=== PATIENT | male | born 1950 | race Caucasian/White ===

== ENCOUNTER → 2017-09-15 | Day surgery (SDC) | payer OTHER ==
[~2017-09-15] MED LIST: ALLEGRA180 MG PO; ASPIRIN325 MG PO; BUPIVACAINE HCL 0.5% INJ 30 ML VIAL INJ ONE; CENTRUM SILVER1 EAC2; CITRACAL + D C1 EACH PO; CLINDAMYCIN PHOS 900MG/ D5W 50 50 ML IV ONE; DEXAMETHASONE SOD PHOS INJ 4 MG/ML VIAL ONE; FENTANYL CITRATE/PF 100MCG/2 ML INJ ONE; FISH OIL OMEGA1 EACH PO; FLONASE; FOLIC ACID1 MG PO; KETOROLAC TROMETHAMINE 30 MG/ML VIAL ONE; LIDOCAINE HCL 2% LOCAL INJ 5 ML SDV VIAL INJ ONE; LOSARTAN POTAS100 MG PO; MICARDIS40 MG PO; MIDAZOLAM HCL 2 MG/2 ML VIAL ONE; ONDANSETRON HCL INJ 2 MG/ML VIAL ONE; PROPOFOL IV EMULSION 10 MG/ML 20 ML VIAL ONE; SEVOFLURANE INHAL SOLN 250 ML PEN BTL ONE
--- NOTE | 2017-09-16 02:42 | Operative Report ---
DATE OF PROCEDURE: September 15, 2017 PREOPERATIVE DIAGNOSIS: Bilateral long and ring finger trigger fingers. POSTOPERATIVE DIAGNOSIS: Bilateral long and ring finger trigger fingers. OPERATIONS//PROCEDURES PERFORMED 1. Release of the right long finger A1 tawanna. 2. Release of the right A1 tawanna for the ring finger. 3. Release of the right ring finger A2 tawanna. 4. Release of the left long finger A1 tawanna. 5. Release of the left A1 tawanna for the ring finger. 6. Release of the left A2 tawanna for the ring finger. COUNTY EXTENSION AGENT: None. ANESTHESIA: General intubation anesthesia. IV FLUIDS: Per anesthesia record. BRIEF DESCRIPTION OF PROCEDURE: Mr. Boswell was taken to the operating room, placed in the supine position on operating table. Following induction of general anesthesia, as well as endotracheal intubation, the patient's bilateral hands were evaluated under anesthesia. He was found to have normal-appearing hands. Motion to fingers demonstrated catching and locking for the long finger and ring fingers of each hand. The patient's upper extremity was prepped and draped in standard surgical fashion. The case was begun by addressing the pathology in the right hand. The patient's long finger was evaluated and he was found to have a palpable nodule at the level of the A1 tawanna for the long finger. Passive flexion of the finger resulted in catching of the finger at the level of the A1 tawanna. An incision was created over the A1 tawanna. This incision was carried through skin only. Blunt dissection was used deepen the incision to the level of the A1 tawanna and the A1 tawanna was isolated using Blanca retractors. The A1 tawanna was then divided in line with the skin incision. Evaluation of flexor tendon demonstrated fusiform swelling within the tendon, but no other pathology. The finger was placed through passive range of motion and there was no more catching or locking within the finger. Attention was then turned to the ring finger. The ring finger with placed through range of motion and again, significant locking was identified at the level of the A1 tawanna. An incision was created over the A1 tawanna and ring finger and blunt dissection was used to deepen the incision to the level of the A1 tawanna. A1 tawanna was isolated using Blanca retractors. The A1 tawanna was then opened throughout its entirety. Examination of the flexor tendon demonstrated a single nodule within the flexor tendon, but no other pathology. The finger was placed through range of motion and there was continued catching within the finger. Palpation of the finger during passive motion of the finger identified a 2nd nodule at the level of the A2 tawanna. An incision was created at the base of the proximal phalanx volar crease and the hand and this incision was carried through skin only. Blunt dissection was used to deepen the incision to the level of the flexor tawanna and the tawanna was isolated using Blanca retractors. The tawanna was then opened in its entirety. The finger was placed through motion and the patient was found to have no further catching or locking. All wounds were copiously irrigated. The wounds were then closed in a single-layer fashion using nylon suture. The patient was then turned to the patient's left hand. Again, the left hand was evaluated under anesthesia. There was catching and locking with both passive motion of the long and ring fingers. Attention was 1st turned to the patient's long finger. An incision was carried through the skin overlying the long finger A1 tawanna. This incision was deepened in a blunt fashion. Seen retractor was used to isolate the flexor tendon and A1 tawanna. The A1 tawanna was then divided in line with the skin incision. The underlying flexor tendon was evaluated and found to have a single nodule in the tendon. It was, otherwise, healthy and there was no pathology. The finger was placed through passive range of motion and there was no further catching or locking in the finger. Attention was then turned to the left ring finger. Again, a palpable nodule was felt at the level of the A1 tawanna. Catching and locking was demonstrated with passive motion of the finger in this area. The incision was created over the A1 tawanna. Incision was carried through skin only. Blunt dissection was used to deepen the incision to the level of the flexor tendon A1 tawanna. The tawnana was isolated using Blanca retractors. The tawanna was then opened in its entirety. The flexor tendon was evaluated and found to have a single nodule. There was no other pathology in the tendon. The finger was placed in range of motion and again, there was some continued catching at the level of the A2 tawanna. An incision was created over the A2 tawanna and blunt dissection was used to isolate the flexor tendon tawanna. Blanca retractors isolated the tawanna and tawanna was opened in its entirety. Passive flexion of the ring finger at this time demonstrated no further catching or locking. The wounds were copiously irrigated and closed in a multilayer fashion. Sterile dressings were applied to both hands and the patient was then awakened and taken to the post anesthesia care unit in stable condition. Job#: [id number] CQ
== END | disposition home or self-care (01) ==
LOC: OR 08:30
PROVIDERS: ATTEND Specialist
DX: M65.332 Trigger finger, left middle finger (principal); M65.342 Trigger finger, left ring finger; M65.341 Trigger finger, right ring finger; M65.331 Trigger finger, right middle finger; M19.042 Primary osteoarthritis, left hand; M19.041 Primary osteoarthritis, right hand; I10 Essential (primary) hypertension; Z88.0 Allergy status to penicillin; Z88.7 Allergy status to serum and vaccine; Z79.82 Long term (current) use of aspirin; Z86.73 Personal history of transient ischemic attack (TIA), and cerebral infarction without residual deficits; Z87.891 Personal history of nicotine dependence
CPT/HCPCS: 26055 ×4; J1100; J1885; J2001; J2250; J2405

== ENCOUNTER → 2019-07-28 | Day surgery (SDC) | payer OTHER ==
[2019-07-24 15:20] LABS: BASOPHILS # (AUTO) 0.1 (0.0-0.1); BASOPHILS % 0.7 % (0.0-1.0); EOSINOPHILS # (AUTO) 0.1 (0.0-0.4); EOSINOPHILS % 1.2 % (0.0-6.0); HEMATOCRIT 44.3 % (38.2-49.6); LYMPHOCYTES # (AUTO) 1.7 (1.0-3.2); LYMPHOCYTES % 25.3 % (18.0-39.1); MEAN CORPUSCULAR HEMOGLOBIN 31.6 pg (28-32); MEAN CORPUSCULAR HGB CONC 33.9 g/dL (31-35); MEAN CORPUSCULAR VOLUME 93.3 fL (81-99); MONOCYTES # (AUTO) 0.6 (0.2-0.8); NEUTROPHILS # (AUTO) 4.3 (2.1-6.9); NEUTROPHILS % 63.7 % (38.7-80.0); PLATELET COUNT 181 x10e3/uL (140-360); RED BLOOD COUNT 4.75 x10e6/uL (4.3-5.7)
[2019-07-24 15:38] LABS: ALANINE AMINOTRANSFERASE 26 IU/L (0-55); ALBUMIN 3.9 g/dL (3.5-5.0); ALBUMIN/GLOBULIN RATIO 1.3 (0.8-2.0); ALKALINE PHOSPHATASE 100 IU/L (40-150); ANION GAP 13.9 mmol/L (8-16); BLOOD UREA NITROGEN 18 mg/dL (7-26); BUN/CREATININE RATIO 18 (6-25); CALCIUM 9.4 mg/dL (8.4-10.2); CARBON DIOXIDE 27 mmol/L (22-29); CHLORIDE 103 mmol/L (98-107); CREATININE, SERUM 0.99 mg/dL (0.72-1.25); EST GLOMERULAR FILTRATION RATE > 60 ML/MIN (60-); GLUCOSE 90 mg/dL (74-118); POTASSIUM 3.9 mmol/L (3.5-5.1); SODIUM 140 mmol/L (136-145)
--- NOTE | 2019-07-24 16:14 | Diagnostic Imaging Report ---
EXAMINATION: CHEST 2 VIEWS INDICATION: Pre-operative COMPARISON: None FINDINGS: LINES/TUBES:None LUNGS:The lungs are well-inflated. No focal consolidation or pulmonary edema. Mild right greater than left biapical pleural parenchymal thickening/scarring. PLEURA:No pleural effusion or pneumothorax. MEDIASTINUM:The cardiomediastinal silhouette appears normal in size and shape. Atherosclerotic calcifications of the thoracic aorta. BONES/SOFT TISSUES:No acute osseous injury. ABDOMEN:No free air under the diaphragm. IMPRESSION: No focal pneumonia or pulmonary edema. Signed by: Vrigil Phillips MD on 07/24/2019 4:12 PM
[~2019-07-28] MED LIST changes: +ALLEGRA-D 24 H1 EACH PO; -CLINDAMYCIN PHOS 900MG/ D5W 50 50 ML IV ONE; -KETOROLAC TROMETHAMINE 30 MG/ML VIAL ONE; +LABETALOL HCL 0 ML ONE; +LEVOFLOXACIN 500MG/D5W 100ML 100 ML IV ONE; -MIDAZOLAM HCL 2 MG/2 ML VIAL ONE; -ONDANSETRON HCL INJ 2 MG/ML VIAL ONE; +ONDANSETRON HCL INJ 2MG/ML 2ML 2 MG/ML VIAL ONE; +VIT C PO
--- OUTSIDE RECORDS SUMMARY | 2019-07-28 10:23 | XMS REPORT ---
Author Author [facility] Address Unknown Phone Unavailable Care Team Providers Care Form Tamper Operator Name Role Phone KAILEY ANGELO Unavailable Unavailable Problems This patient has no known problems. Allergies, Adverse Reactions, Alerts This patient has no known allergies or adverse reactions. Medications This patient has no known medications. Results Test Description Test Time Test Comments Text Results Atomic Results Result Comments CHEST 2 VIEWS 2019-07-24 16:11:00 [place] [id number] Patient Name: TYESHA STORM MR #: [id number] : 1950 Age/Sex: 68/M Req #: [id number] Adm Physician: Ordered by: KAILEY ANGELO MD Report #: [id number] Location: OR Room/Bed: Procedure: [id number] DX/CHEST 2 VIEWS Exam Date: 07/24/19 Exam Time: 1541 REPORT STATUS: Signed EXAMINATION: CHEST 2 VIEWS INDICATION: Pre-operative COMPARISON: None FINDINGS: LINES/TUBES:None LUNGS:The lungs are well-inflated. No focal consolidation or pulmonary edema. Mild right greater than left biapical pleural parenchymal thickening/scarring. PLEURA:No pleural effusion or pneumothorax. MEDIASTINUM:The cardiomediastinal silhouette appears normal in size and shape. Atherosclerotic calcifications of the thoracic aorta. BONES/SOFT TISSUES:No acute osseous injury. ABDOMEN:No free air under the diaphragm. IMPRESSION: No focal pneumonia or pulmonary edema. Signed by: Bharat Devries MD on 07/24/2019 4:12 PM Dictated By: BHARAT DEVRIES MD 161 Transcribed By: CHRIS on 07/24/191611 COPY TO: KAILEY ANGELO MD
[2019-07-28 14:25] VITALS: BP 160/93
--- NOTE | 2019-07-28 20:33 | Operative Report ---
DATE OF PROCEDURE: 07/28/2019 SURGEON: Dalton Millan MD PREOPERATIVE DIAGNOSIS: Right axillary mass. POSTOPERATIVE DIAGNOSIS: Right axillary mass. PROCEDURE: Excision of deep right axillary mass 7 cm. COMMERCIAL LOAN REVIEWER: None. ANESTHESIA: General. INDICATIONS AND FINDINGS: The patient is a 68-year-old male, who presented with large mass in the right axilla. At surgery, there was about 7 cm mass that was excised and appeared to be enlarged lymph node. There were several lymph nodes matted together, which were removed. TECHNIQUE: After adequate general anesthesia with the patient in supine position, the right axilla was prepped and draped in a sterile fashion with ChloraPrep solution. Transverse incision was made, carried down through subcutaneous tissue until the clavipectoral fascia was encountered. This was incised in deep axilla. The mass was identified and completely excised from the surrounding tissues, appeared to be enlarged lymph node. There were several other small lymph nodes matted to it, these were all excised completely. Hemostasis was achieved with electrocautery. A portion of the mass was submitted for cultures draining for pathology. The wound was irrigated with saline and inspected for hemostasis, which was seen to be adequate. So, irrigated further with saline. All fluid aspirated and inspected for hemostasis, which was seen to be adequate. The wound was then infiltrated with 0.5% Marcaine. The wound was then closed with 3-0 Vicryl subcutaneous tissue and 4-0 Vicryl subcuticular to the skin and Dermabond was applied to the wound and a sterile dressing. The patient tolerated the procedure well. The patient was taken to the recovery room in satisfactory condition. ESTIMATED BLOOD LOSS: 60 mL. COMPLICATIONS: There were no complications. COUNTS: All counts were correct. Dalton Millan MD DWG/MODL /[id number] cc: Mars Wisdom MD
== END | disposition home or self-care (01) ==
LOC: OR 10:17
PROVIDERS: ATTEND Surgery
DX: C96.9 Malignant neoplasm of lymphoid, hematopoietic and related tissue, unspecified (principal); I10 Essential (primary) hypertension; I69.998 Other sequelae following unspecified cerebrovascular disease; H53.9 Unspecified visual disturbance; Z01.810 Encounter for preprocedural cardiovascular examination; Z01.812 Encounter for preprocedural laboratory examination; Z01.818 Encounter for other preprocedural examination; Z79.82 Long term (current) use of aspirin
CPT/HCPCS: 36415; 38525; 71046; 80053; 85025; 87071; 87075; 87116; 87205; 87206; 88172; 88173; 88305; 88331; 88342; 93005; J1100; J1956; J2001; J2405; J2704; J3010

== ENCOUNTER → 2023-06-18 | Day surgery (SDC) | payer MEDICARE, OTHER ==
[2023-06-16 14:33] LABS: BASOPHILS # (AUTO) 0.1 (0.0-0.1); BASOPHILS % 0.5 % (0.0-1.0); EOSINOPHILS # (AUTO) 0.1 (0.0-0.4); EOSINOPHILS % 0.6 % (0.0-6.0); HEMATOCRIT 38.2 % (38.2-49.6); HEMOGLOBIN 12.7 g/dL (14.0-18.0); LYMPHOCYTES # (AUTO) 1.3 (1.0-3.2); LYMPHOCYTES % 10.2 % (18.0-39.1); MEAN CORPUSCULAR HEMOGLOBIN 30.8 pg (28-32); MEAN CORPUSCULAR HGB CONC 33.2 g/dL (31-35); MEAN CORPUSCULAR VOLUME 92.7 fL (81-99); MONOCYTES # (AUTO) 0.8 (0.2-0.8); MONOCYTES % 6.3 % (4.4-11.3); NEUTROPHILS # (AUTO) 10.5 (2.1-6.9); PLATELET COUNT 256 x10e3/uL (140-360); RED BLOOD COUNT 4.12 x10e6/uL (4.3-5.7); RED CELL DISTRIBUTION WIDTH 12.9 % (11.7-14.4); WHITE BLOOD COUNT 12.84 x10e3/uL (4.8-10.8)
[2023-06-16 15:00] LABS: ANION GAP 13.2 mmol/L (8-16); CREATININE, SERUM 1.24 mg/dL (0.72-1.25); POTASSIUM 4.2 mmol/L (3.5-5.1)
[~2023-06-18] MED LIST changes: +ACETAMINOPHEN 1000 MG/100 ML 100 ML IV ONE; +BUPIVACAINE 0.25% 30ML SDV ONE; -BUPIVACAINE HCL 0.5% INJ 30 ML VIAL INJ ONE; +CLARITIN10 M2; +DEXAMETHASONE SOD PHOS INJ 4 MG/ML SDV ONE; -DEXAMETHASONE SOD PHOS INJ 4 MG/ML VIAL ONE; +EPHEDRINE SULFATE INJ 50 MG/ML VIAL ONE; +FLUTICASONE P10.6 GM; +HAIR, SKIN AND1 EAC2 PO; -LABETALOL HCL 0 ML ONE; +LACTATED RINGER'S 1,000 ML ONE; -LEVOFLOXACIN 500MG/D5W 100ML 100 ML IV ONE; +LIDOCAINE 2% /EPINEPHRINE 20 ML SDV INJ ONE; +MAGNESIUM PO; +SUGAMMADEX SODIUM 200 MG/2 ML VIAL IV ONE; +TYLENOL ARTHRITIS; +VITAMIN B-125000 MC2 PO; +VITAMIN C500 MG PO; +VITAMIN E450 M1; +[UNRECOGNIZED DRUG - OTHER]
[2023-06-18] MEDS: FENTANYL CITRATE/PF 100MCG/2 ML INJ ONE ×4 (10:56→11:15)
[2023-06-18 12:10] VITALS: BP 150/80; PULSE 80; RESP 16; O2SAT 97
== END | disposition home or self-care (01) ==
LOC: OR 06:13
PROVIDERS: ATTEND Surgery
DX: K40.90 Unilateral inguinal hernia, without obstruction or gangrene, not specified as recurrent (principal); D17.6 Benign lipomatous neoplasm of spermatic cord; I10 Essential (primary) hypertension; I69.398 Other sequelae of cerebral infarction; H54.62 Unqualified visual loss, left eye, normal vision right eye; F17.200 Nicotine dependence, unspecified, uncomplicated; Z88.0 Allergy status to penicillin; Z88.7 Allergy status to serum and vaccine; Z01.812 Encounter for preprocedural laboratory examination; Z01.818 Encounter for other preprocedural examination; Z79.82 Long term (current) use of aspirin; Z79.899 Other long term (current) drug therapy; Z87.01 Personal history of pneumonia (recurrent)
CPT/HCPCS: 36415; 49505; 71046; 80048; 85025; 88304; C1781; J0131; J1100; J2001 ×2; J2405; J2704; J3010; J7121; 88302

== ENCOUNTER → 2024-02-04 | Outpatient (REF) | payer MEDICARE ==
[~2024-02-04] MED LIST changes: -ACETAMINOPHEN 1000 MG/100 ML 100 ML IV ONE; -BUPIVACAINE 0.25% 30ML SDV ONE; -DEXAMETHASONE SOD PHOS INJ 4 MG/ML SDV ONE; -EPHEDRINE SULFATE INJ 50 MG/ML VIAL ONE; -FENTANYL CITRATE/PF 100MCG/2 ML INJ ONE; +GADOBENATE DIMEGLUMINE 1 ML IV ONE; -LACTATED RINGER'S 1,000 ML ONE; -LIDOCAINE 2% /EPINEPHRINE 20 ML SDV INJ ONE; -LIDOCAINE HCL 2% LOCAL INJ 5 ML SDV VIAL INJ ONE; -ONDANSETRON HCL INJ 2MG/ML 2ML 2 MG/ML VIAL ONE; -PROPOFOL IV EMULSION 10 MG/ML 20 ML VIAL ONE; -SEVOFLURANE INHAL SOLN 250 ML PEN BTL ONE; -SUGAMMADEX SODIUM 200 MG/2 ML VIAL IV ONE
== END ==
LOC: MRI 09:25
PROVIDERS: ATTEND Optometrist
DX: H47.13 Papilledema associated with retinal disorder (principal); H47.292 Other optic atrophy, left eye
CPT/HCPCS: 70553